=== PATIENT | male | born 1975 | race Caucasian/White ===

== ENCOUNTER 2016-12-29 19:32 | Emergency (ER) | payer MEDICAID ==
[~2016-12-29] VITALS: Ht 170.2 cm; Wt 71.0 kg
[2016-12-29 19:36] VITALS: Ht 170.2 cm; Wt 71.0 kg
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
[2016-12-29] MEDS ORDERED: KETOROLAC 30 MG INJ IM STA (19:58)
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
[2016-12-29] MEDS ORDERED: CYCL-319 PO (23:16)
== END 2016-12-29 23:27 | disposition home or self-care (01) ==
LOC: FTE 19:32
DX: M62.838 Other muscle spasm (principal); Z04.1 Encounter for examination and observation following transport accident
CPT/HCPCS: 72125; J1885; 96372